=== PATIENT | female | born 1975 | race Caucasian/White ===

== ENCOUNTER 2021-08-23 09:21 | Outpatient (CLI) | payer SELFPAY ==
[2021-08-23 17:29] LABS: SARS-CoV-2 PCR by NAA Not Detected (NotDetected)
== END 2021-08-23 09:22 | disposition home or self-care (01) ==
LOC: CSHLAB 09:21
PROVIDERS: ATTEND Surgery
DX: Z01.812 Encounter for preprocedural laboratory examination (principal); Z20.822 Contact with and (suspected) exposure to COVID-19; N82.0 Vesicovaginal fistula; N13.30 Unspecified hydronephrosis
CPT/HCPCS: U0003; U0005

== ENCOUNTER 2021-08-24 09:33 | Day surgery (SDC) | payer OTHER ==
[2021-08-22 12:17] VITALS: BMI 27.4
[2021-08-24] MEDS ORDERED: Lidocaine 1% MPF 2 ML VIAL ONE (09:41)
[2021-08-24] MEDS ORDERED: Bupivacaine PF 0.5% 30 ML VIAL ONE (09:52)
[2021-08-24] MEDS ORDERED: EPINEPHrine 1 MG/ML AMP ONE (09:52)
[2021-08-24] MEDS ORDERED: Midazolam HCl 2 mg/2 ml Vial ONE (10:14)
[2021-08-24] MEDS ORDERED: Fentanyl 100 MCG/2 ML VIAL ONE (10:18)
[2021-08-24] MEDS ORDERED: PROPOFOL 20 ML ONE (10:18)
[2021-08-24] MEDS ORDERED: Ondansetron PF 4 MG/2 ML Vial ONE (10:46)
[2021-08-24] MEDS ORDERED: Dexamethasone 4 mg/ml Vial ONE (10:46)
[2021-08-24] MEDS ORDERED: HYDROcodone/Acetaminophen 5/325 mg Tablet PO PRN (11:10)
== END 2021-08-24 12:10 | disposition home or self-care (01) ==
LOC: CSHSDC 09:33
PROVIDERS: ATTEND Surgery
DX: C53.0 Malignant neoplasm of endocervix (principal)
CPT/HCPCS: 76000; C1788; J0171; J0690; J1100; J1642; J2250; J2405; J2704; J3010; S0020